=== PATIENT | male | born 1955 | race Caucasian/White ===

== ENCOUNTER 2023-10-29 20:23 | Inpatient (IN) | payer OTHER, MEDICAID ==
[~2023-10-29] VITALS: Ht 177.8 cm; Wt 89.8 kg
[2023-10-29 20:26] VITALS: BP_SYST 144; PULSE 111; RESP 22; TEMP 97.4; O2SAT 98
[2023-10-29] MEDS: NACL 0.9% 1,000 ML IV ONE (21:42)
[2023-10-29] MEDS: ONDANSETRON HCL 4 MG/2 ML VIAL IVP ONE (21:45)
[2023-10-29 21:50] LABS: HEMATOCRIT 27.8 % (36-54); HEMOGLOBIN 7.1 g/dL (14.0-18.0); MEAN CORPUSCULAR HEMOGLOBIN 18 pg (27-31); MEAN CORPUSCULAR HGB CONC 26 % (32-36); MEAN CORPUSCULAR VOLUME 70 fL (79.0-98.0); RED BLOOD CELL COUNT(AUTO) 3.98 MIL/uL (4.2-6.2); RED CELL DISTRIBUTION WIDTH 19.9 % (9.0-15.0)
[2023-10-29 21:50] LABS: BILIRUBIN,URINE 2+ (NEGATIVE); CLARITY/URINE CLOUDY (CLEAR); GLUCOSE,URINE TRACE (NEGATIVE); KETONES,URINE 1+ (NEGATIVE); LEUKOCYTE ESTERASE ,URINE 2+ (NEGATIVE); NITRITE, URINE POSITIVE (NEGATIVE); PROTEIN URINE 1+ (NEGATIVE)
[2023-10-29 22:26] LABS: PLATELET COUNT (AUTO) 837 K/uL (130-430); WHITE BLOOD COUNT (AUTO) 72.7 K/uL (4.8-10.8)
[2023-10-29 22:43] LABS: BLOOD, URINE TRACE (NEGATIVE)
[2023-10-29 22:46] LABS: BACTERIA,URINE MODERATE /HPF (None Seen); MUCUS,URINE None Seen /LPF (None Seen); RBC,URINE 0-3 /HPF (0-3); URINE AMORPHOUS URATE 1+ /HPF (None Seen); WBC,URINE 20-50 /HPF (0-3)
[2023-10-29 22:48] LABS: COLOR,URINE AMBER (YELLOW)
[2023-10-29 23:01] LABS: ANISOCYTOSIS 1+; BAND % (MANUAL) 12 % (0-6); BASOPHILS % (MANUAL) 0 % (0-2); EOSINOPHILS % (MANUAL) 0 % (0-7); HYPOCHROMASIA 2+; LYMPHOCYTES % (MANUAL) 2 % (20-46); MONOCYTES % (MANUAL) 2 % (0-11); OVALOCYTES MODERATE; PLATELET ESTIMATE INCREASED (ADEQUATE)
[2023-10-29 23:10] LABS: CREATININE 1.22 mg/dL (0.55-1.30); GFR AFRICAN AMERICAN 76 mL/min (>90); LIPASE 7 U/L (16-77)
[2023-10-29 23:31] LABS: ALANINE AMINOTRANSFERASE 8 U/L (12-78); ALBUMIN 2.1 g/dL (3.4-4.8); ANION GAP 24 (5-15); ASPARTATE AMINOTRANSFERASE 13 U/L (10-37); BILIRUBIN,DIRECT 0.3 mg/dL (0.0-0.3); CALCIUM 8.7 mg/dL (8.4-11.0); CARBON DIOXIDE 13 mmol/L (23-29); CHLORIDE 90 mmol/L (98-107); CREATINE KINASE, TOTAL 93 U/L (39-308); POTASSIUM 4.9 mmol/L (3.5-5.1); SODIUM SERUM 127 mmol/L (136-145); TOTAL BILIRUBIN 0.6 mg/dL (0.0-1.0); TOTAL PROTEIN, SERUM 7.4 g/dL (6.4-8.3); UREA NITROGEN, BLOOD 56 mg/dL (8-21)
[2023-10-29 23:32] LABS: GFR NON AFRICAN-AMERICAN 63 mL/min (>90)
[2023-10-29 23:34] LABS: GLUCOSE 407 mg/dL (74-106)
[2023-10-29] MEDS ORDERED: VANCOMYCIN HCL 1 GM/NS PREMIX 250 ML IV ONE (23:45)
[2023-10-29] MEDS: PIPERACILLIN/TAZOBACTAM 3.375 GM/VIAL (ZOSYN) IV ONE (23:58)
[2023-10-30] VITALS (21 sets, daily range): BP systolic 0–160; PULSE 73–120; RESP 9–26; TEMP 96.7–98.1; O2SAT 96–100
[2023-10-30] LABS: ACETONE, SERUM NEGATIVE (NEGATIVE)
[2023-10-30] MEDS: PIPERACILLIN/TAZO 3.375 GM in NS 50 ML IV ONE (00:06)
[2023-10-30] MEDS ORDERED: VANCOMYCIN HCL 1000 MG/VIAL IV ONE (00:17)
[2023-10-30] MEDS ORDERED: LEVO112T5 PO (00:24)
[2023-10-30] MEDS ORDERED: TAMS0.4C96 PO (00:24)
[2023-10-30] MEDS ORDERED: HYT1 PO (00:24)
[2023-10-30] MEDS: VANCOMYCIN HCL 1 GM/NS PREMIX 250 ML IV ONE (00:24)
[2023-10-30] MEDS ORDERED: NITR100C PO (00:24)
[2023-10-30] MEDS ORDERED: SIMV-345 PO (00:24)
[2023-10-30] MEDS ORDERED: INSU100V7 SUBCUT (00:24)
[2023-10-30] MEDS ORDERED: NPH,100I SQ (00:24)
[2023-10-30] MEDS ORDERED: PHEN200C3 PO (00:24)
[2023-10-30] MEDS: NACL 0.9% 1,000 ML IV SCH (00:37)
[2023-10-30] MEDS: MORPHINE 2 MG/ML INJ. SYRINGE IVP PRN (02:27)
[2023-10-30] MEDS: INSULIN REGULAR, HUMAN 100 UNITS/ML, 3 ML VIAL (humuLIN R) SUBCUT PRN (02:39)
[2023-10-30] MEDS ORDERED: PIPERACILLIN/TAZOBACTAM 3.375 GM/VIAL (ZOSYN) IV ONE (04:00)
[2023-10-30] MEDS: PIPERACILLIN/TAZO 3.375/DEX-IS 50 ML IV SCH ×2 (06:26→12:14)
[2023-10-30 08:52] LABS: BASOPHILS # (AUTO) 0.1 K/uL (0.0-0.2); BASOPHILS % (AUTO) 0.1 % (0.0-2.0); HEMATOCRIT 27.4 % (36-54); HEMOGLOBIN 7.8 g/dL (14.0-18.0); LYMPHOCYTES # (AUTO) 0.8 K/uL (1.0-5.5); LYMPHOCYTES % (AUTO) 1.2 % (20.5-51.5); MEAN CORPUSCULAR HEMOGLOBIN 20 pg (27-31); MEAN CORPUSCULAR HGB CONC 29 % (32-36); MEAN CORPUSCULAR VOLUME 68 fL (79.0-98.0); MONOCYTES % (AUTO) 3.3 % (1.7-9.3); NEUTROPHILS # (AUTO) 58.2 K/uL (1.8-7.7); PLATELET COUNT (AUTO) 692 K/uL (130-430); RED CELL DISTRIBUTION WIDTH 23.8 % (9.0-15.0)
[2023-10-30 09:04] LABS: NEUTROPHILS % (AUTO) 95.4 % (40.0-70.0)
[2023-10-30 09:05] LABS: CALCIUM 8.2 mg/dL (8.4-11.0); CREATININE 1.12 mg/dL (0.55-1.30); POTASSIUM 4.8 mmol/L (3.5-5.1)
[2023-10-30 09:06] LABS: ALBUMIN 1.9 g/dL (3.4-4.8); PHENYTOIN (DILANTIN) 1.9 ug/mL (10.0-20.0); TOTAL PROTEIN, SERUM 6.8 g/dL (6.4-8.3)
[2023-10-30 09:49] LABS: TOTAL BILIRUBIN 1.1 mg/dL (0.0-1.0)
[2023-10-30] MEDS: metroNIDAZOLE 500 mg/NS 100 ML IV SCH (10:43)
[2023-10-30] MEDS ORDERED: DEXTROSE 50%-WATER 50 ML DISP.SYRIN IVP PRN (10:45)
[2023-10-30] MEDS: FLUCONAZOLE IN NACL,ISO-OSM 200 ML IV SCH (10:50)
[2023-10-30] MEDS: LR 1,000 ML IV SCH (10:51)
[2023-10-30] MEDS: NS 500 ML IV ONE (10:51)
[2023-10-30] MEDS ORDERED: VANCOMYCIN HCL 750 MG in NS 250 ML IV SCH (12:00)
[2023-10-30] MEDS: PANTOPRAZOLE SODIUM 40 MG/VIAL (PROTONIX) IVP ONE (13:02)
[2023-10-30] MEDS: MINERAL OIL 133 ML ENEMA RC ONE (22:16)
[2023-10-31] VITALS (30 sets, daily range): BP systolic 78–195; PULSE 94–116; RESP 12–25; TEMP 97.1–97.8; O2SAT 94–99
[2023-10-31 00:20] LABS: INR 1.3 (0.80-1.20); PROTHROMBIN TIME 13.8 SECS (9.5-12.5)
[2023-10-31 00:29] LABS: CALCIUM 7.8 mg/dL (8.4-11.0); CREATININE 1.04 mg/dL (0.55-1.30); FREE T4 (FREE THYROXINE) 1.3 ng/dl (0.8-1.5); POTASSIUM 4.3 mmol/L (3.5-5.1); THYROID STIMULATING HORMONE 0.86 uIu/mL (0.36-3.74)
[2023-10-31 01:37] LABS: BASOPHILS # (AUTO) 0.1 K/uL (0.0-0.2); BASOPHILS % (AUTO) 0.2 % (0.0-2.0); HEMATOCRIT 27.3 % (36-54); LYMPHOCYTES # (AUTO) 0.5 K/uL (1.0-5.5); LYMPHOCYTES % (AUTO) 1.2 % (20.5-51.5); MEAN CORPUSCULAR HEMOGLOBIN 23 pg (27-31); MEAN CORPUSCULAR HGB CONC 33 % (32-36); MEAN CORPUSCULAR VOLUME 71 fL (79.0-98.0); MONOCYTES # (AUTO) 0.8 K/uL (0.0-1.0); MONOCYTES % (AUTO) 2.1 % (1.7-9.3); NEUTROPHILS # (AUTO) 38.5 K/uL (1.8-7.7); NEUTROPHILS % (AUTO) 96.5 % (40.0-70.0); PLATELET COUNT (AUTO) 559 K/uL (130-430); RED BLOOD CELL COUNT(AUTO) 3.84 MIL/uL (4.2-6.2); RED CELL DISTRIBUTION WIDTH 30.5 % (9.0-15.0)
[2023-10-31 01:53] LABS: WHITE BLOOD COUNT (AUTO) 39.9 K/uL (4.8-10.8)
[2023-10-31] MEDS: PHYTONADIONE 10 MG/ML AMP SUBCUT ONE (02:41)
[2023-10-31] MEDS: BALSAM PERU/CASTOR OIL 56.7 GM OINT...G. TP SCH (09:57)
[2023-10-31] MEDS: PANTOPRAZOLE SODIUM 40 MG/VIAL (PROTONIX) IVP SCH (09:58)
[2023-10-31 10:12] LABS: BASOPHILS # (AUTO) 0.1 K/uL (0.0-0.2); BASOPHILS % (AUTO) 0.3 % (0.0-2.0); HEMOGLOBIN 10.2 g/dL (14.0-18.0); LYMPHOCYTES # (AUTO) 0.7 K/uL (1.0-5.5); LYMPHOCYTES % (AUTO) 1.9 % (20.5-51.5); MEAN CORPUSCULAR HEMOGLOBIN 24 pg (27-31); MEAN CORPUSCULAR HGB CONC 33 % (32-36); MEAN CORPUSCULAR VOLUME 73 fL (79.0-98.0); MONOCYTES % (AUTO) 2.8 % (1.7-9.3); NEUTROPHILS # (AUTO) 33.8 K/uL (1.8-7.7); PLATELET COUNT (AUTO) 506 K/uL (130-430); RED BLOOD CELL COUNT(AUTO) 4.25 MIL/uL (4.2-6.2); RED CELL DISTRIBUTION WIDTH 30.9 % (9.0-15.0)
[2023-10-31 10:14] LABS: CALCIUM 8.1 mg/dL (8.4-11.0); CREATININE 0.92 mg/dL (0.55-1.30); TOTAL BILIRUBIN 1.6 mg/dL (0.0-1.0); TOTAL PROTEIN, SERUM 6.8 g/dL (6.4-8.3)
[2023-10-31 10:28] LABS: WHITE BLOOD COUNT (AUTO) 35.7 K/uL (4.8-10.8)
[2023-10-31] MEDS: MORPHINE 2 MG/ML INJ. SYRINGE IVP PRN (11:07)
[2023-10-31] MEDS: fentaNYL CITRATE/PF 100 MCG/2 ML AMP ONE (15:06)
[2023-10-31] MEDS: HYDROmorphone 2 MG/ML VIAL ONE (15:06)
[2023-10-31] MEDS: MIDAZOLAM HCL 2 MG/2 ML VIAL (VERSED) ONE (15:07)
[2023-10-31] MEDS: ALBUMIN HUMAN 5% 0 ML IV ONE (16:22)
[2023-10-31] MEDS: ALBUMIN HUMAN 5% 500 ML IV ONE (16:38)
[2023-10-31] MEDS: ALBUMIN HUMAN 5% 250 ML IV ONE (16:38)
[2023-10-31] MEDS ORDERED: metroNIDAZOLE 500 mg/NS 100 mL IVPB IV ONE (20:11)
[2023-10-31] MEDS ORDERED: PROPOFOL 200MG/ 20ML VIAL (DIPRIVAN) IV ONE (20:11)
[2023-10-31] MEDS ORDERED: LR 1,000 ML IV.SOLN IV ONE (20:11)
[2023-10-31] MEDS ORDERED: fentaNYL CITRATE/PF 100 MCG/2 ML AMP ONE (20:11)
[2023-10-31] MEDS ORDERED: ROCURONIUM BROMIDE 10 MG/ML (ZEMURON) ONE (20:11)
[2023-10-31] MEDS ORDERED: HYDROmorphone 2 MG/ML VIAL ONE (20:11)
[2023-10-31] MEDS ORDERED: NS IRRIG SOLN 1000 ML IR ONE (20:11)
[2023-10-31] MEDS ORDERED: NS 250 ML IV.SOLN IV ONE (20:11)
[2023-10-31] MEDS ORDERED: SEVOFLURANE 15 MIN GAS INH ONE (20:11)
[2023-10-31] MEDS ORDERED: NS 500 ML IV.SOLN IV ONE (20:11)
[2023-10-31] MEDS ORDERED: DEXAMETHASONE SOD PHOSPHATE 4 MG/ML VIAL ONE (20:11)
[2023-10-31] MEDS ORDERED: MIDAZOLAM HCL 5 MG/ML VIAL (VERSED) IV ONE (20:11)
[2023-10-31] MEDS ORDERED: ALBUMIN HUMAN 5% 12.5 GM/250 ML VIAL IV ONE (20:11)
[2023-10-31] MEDS ORDERED: WATER FOR IRRIGATION,STERILE 1,000 ML IRRIG.SOLN IR ONE (20:11)
[2023-10-31] MEDS: PROPOFOL DRIP 100 ML IV ONE (20:23)
[2023-10-31] MEDS: PROPOFOL DRIP 100 ML IV PRN (20:26)
[2023-10-31] MEDS: NOREPINEPHRINE BITARTRATE 16 MG in NS 234 ML IV PRN (20:39)
[2023-10-31 20:47] LABS: BASOPHILS % (AUTO) 0.2 % (0.0-2.0); EOSINOPHILS % (AUTO) 0.1 % (0.0-4.0); HEMATOCRIT 45.3 % (36-54); HEMOGLOBIN 15.1 g/dL (14.0-18.0); LYMPHOCYTES # (AUTO) 0.2 K/uL (1.0-5.5); LYMPHOCYTES % (AUTO) 1.8 % (20.5-51.5); MEAN CORPUSCULAR HEMOGLOBIN 27 pg (27-31); MEAN CORPUSCULAR HGB CONC 33 % (32-36); MONOCYTES # (AUTO) 0.3 K/uL (0.0-1.0); MONOCYTES % (AUTO) 2.3 % (1.7-9.3); NEUTROPHILS # (AUTO) 12.9 K/uL (1.8-7.7); NEUTROPHILS % (AUTO) 95.6 % (40.0-70.0); PLATELET COUNT (AUTO) 313 K/uL (130-430); RED BLOOD CELL COUNT(AUTO) 5.65 MIL/uL (4.2-6.2); RED CELL DISTRIBUTION WIDTH 28.6 % (9.0-15.0)
[2023-10-31 20:49] LABS: CALCIUM 7.1 mg/dL (8.4-11.0); CREATININE 0.82 mg/dL (0.55-1.30); POTASSIUM 4.6 mmol/L (3.5-5.1)
[2023-10-31 20:52] LABS: MEAN CORPUSCULAR VOLUME 80 fL (79.0-98.0)
[2023-10-31] MEDS: BUPIVACAINE LIPOSOME/PF 266 MG/20 ML VIAL INFIL ONE (20:55)
[2023-10-31 21:06] LABS: WHITE BLOOD COUNT (AUTO) 13.5 K/uL (4.8-10.8)
[2023-10-31 23:55] LABS: BLOOD GAS PH 7.221 (7.350-7.450)
[2023-10-31 23:56] LABS: ABG O2 SAT% ESTIMATE 98.9 % (94.0-100.0); BLOOD GAS BASE EXCESS -9.2 mmol/L (-3.0-3.0); BLOOD GAS HCO3 18.4 mmol/L (21.0-27.0); BLOOD GAS PO2 175.5 mmHg (75.0-100.0)
[2023-11-01] VITALS (36 sets, daily range): BP systolic 95–144; PULSE 91–114; RESP 13–33; TEMP 97.7–98.5; O2SAT 98–99
[2023-11-01] MEDS ORDERED: SODIUM BICARBONATE 8.4% JECT 50 MEQ/50 ML SYRINGE IVP ONE (01:15)
[2023-11-01] MEDS: SODIUM BICARBONATE 8.4% JECT 50 MEQ/50 ML SYRINGE IVP ONE (01:34)
[2023-11-01 06:33] LABS: BASOPHILS # (AUTO) 0.1 K/uL (0.0-0.2); BASOPHILS % (AUTO) 0.4 % (0.0-2.0); EOSINOPHILS # (AUTO) 0.1 K/uL (0.0-0.4); EOSINOPHILS % (AUTO) 0.4 % (0.0-4.0); HEMATOCRIT 44.5 % (36-54); HEMOGLOBIN 14.4 g/dL (14.0-18.0); LYMPHOCYTES # (AUTO) 0.5 K/uL (1.0-5.5); LYMPHOCYTES % (AUTO) 1.7 % (20.5-51.5); MEAN CORPUSCULAR HEMOGLOBIN 27 pg (27-31); MEAN CORPUSCULAR HGB CONC 32 % (32-36); MEAN CORPUSCULAR VOLUME 83 fL (79.0-98.0); MONOCYTES # (AUTO) 0.5 K/uL (0.0-1.0); MONOCYTES % (AUTO) 1.6 % (1.7-9.3); NEUTROPHILS # (AUTO) 28.7 K/uL (1.8-7.7); NEUTROPHILS % (AUTO) 95.9 % (40.0-70.0); PLATELET COUNT (AUTO) 415 K/uL (130-430); RED BLOOD CELL COUNT(AUTO) 5.38 MIL/uL (4.2-6.2); RED CELL DISTRIBUTION WIDTH 28.3 % (9.0-15.0)
[2023-11-01 06:56] LABS: ALBUMIN 1.6 g/dL (3.4-4.8); CALCIUM 7.2 mg/dL (8.4-11.0); CREATININE 0.83 mg/dL (0.55-1.30); POTASSIUM 4.6 mmol/L (3.5-5.1); TOTAL BILIRUBIN 2.5 mg/dL (0.0-1.0); TOTAL PROTEIN, SERUM 4.8 g/dL (6.4-8.3)
[2023-11-01 09:59] LABS: BLOOD GAS BASE EXCESS -4.2 mmol/L (-3.0-3.0); BLOOD GAS HCO3 18.2 mmol/L (21.0-27.0); BLOOD GAS PCO2 27.3 mmHg (32.0-45.0); BLOOD GAS PH 7.442 (7.350-7.450); BLOOD GAS PO2 147.6 mmHg (75.0-100.0)
[2023-11-01] MEDS: ROCURONIUM BROMIDE 10 MG/ML (ZEMURON) IV ONE (14:06)
[2023-11-01] MEDS: FUROSEMIDE 40 MG/4 ML VIAL IVP ONE (14:07)
[2023-11-01] MEDS ORDERED: *TPN PER PHARMACY XX PRN (18:15)
[2023-11-02] VITALS (36 sets, daily range): BP systolic 98–160; PULSE 87–108; RESP 8–21; TEMP 97–98.5; O2SAT 92–99
[2023-11-02 06:42] LABS: HEMATOCRIT 38.4 % (36-54); HEMOGLOBIN 12.2 g/dL (14.0-18.0); MEAN CORPUSCULAR HEMOGLOBIN 26 pg (27-31); MEAN CORPUSCULAR HGB CONC 32 % (32-36); MEAN CORPUSCULAR VOLUME 82 fL (79.0-98.0); PLATELET COUNT (AUTO) 263 K/uL (130-430); RED BLOOD CELL COUNT(AUTO) 4.68 MIL/uL (4.2-6.2)
[2023-11-02 06:49] LABS: ALBUMIN 1.1 g/dL (3.4-4.8); CREATININE 0.97 mg/dL (0.55-1.30); PHOSPHORUS 2.9 mg/dL (2.7-4.5); POTASSIUM 4.2 mmol/L (3.5-5.1); TOTAL BILIRUBIN 1.8 mg/dL (0.0-1.0); TOTAL PROTEIN, SERUM 4.3 g/dL (6.4-8.3)
[2023-11-02 07:01] LABS: CALCIUM 6.8 mg/dL (8.4-11.0)
[2023-11-02 07:50] LABS: WHITE BLOOD COUNT (AUTO) 30.9 K/uL (4.8-10.8)
[2023-11-02] MEDS: FUROSEMIDE 40 MG/4 ML VIAL IVP SCH (08:33)
[2023-11-02] MEDS ORDERED: LR 1,000 ML IV SCH (10:30)
[2023-11-02] MEDS: ALBUMIN HUMAN 25% 50 ML IV ONE (10:35)
[2023-11-02 10:39] LABS: BAND % (MANUAL) 27 % (0-6)
[2023-11-02 10:40] LABS: ANISOCYTOSIS 2+; ATYPICAL LYMPHOCYTES % 1 % (0-0); BASOPHILS % (MANUAL) 0 % (0-2); EOSINOPHILS % (MANUAL) 0 % (0-7); HYPOCHROMASIA 1+; LYMPHOCYTES % (MANUAL) 2 % (20-46); MONOCYTES % (MANUAL) 2 % (0-11); PLATELET ESTIMATE ADEQUATE (ADEQUATE)
[2023-11-02] MEDS: LR 1,000 ML IV SCH (21:28)
[2023-11-02] MEDS: MVI IV SCH (21:30)
[2023-11-02] MEDS: CALCIUM GLUCONATE IV SCH (21:30)
[2023-11-02] MEDS: SODIUM ACETATE IV SCH (21:30)
[2023-11-02] MEDS: [UNRECOGNIZED DRUG - OTHER] IV SCH (21:30)
[2023-11-02] MEDS: TPN CENTRAL IV SCH (21:30)
[2023-11-03] VITALS (35 sets, daily range): BP systolic 93–157; PULSE 76–120; RESP 9–17; TEMP 97.2–98.2; O2SAT 96–100
[2023-11-03 06:16] LABS: ALBUMIN 1.1 g/dL (3.4-4.8); CREATININE 0.88 mg/dL (0.55-1.30); PHOSPHORUS 2.8 mg/dL (2.7-4.5); POTASSIUM 3.1 mmol/L (3.5-5.1); TOTAL BILIRUBIN 1.3 mg/dL (0.0-1.0)
[2023-11-03 06:29] LABS: INR 1.4 (0.80-1.20); PROTHROMBIN TIME 14.7 SECS (9.5-12.5)
[2023-11-03 06:54] LABS: EOSINOPHILS % (AUTO) 0.1 % (0.0-4.0); HEMATOCRIT 34.3 % (36-54); HEMOGLOBIN 10.7 g/dL (14.0-18.0); LYMPHOCYTES # (AUTO) 0.7 K/uL (1.0-5.5); LYMPHOCYTES % (AUTO) 2.5 % (20.5-51.5); MEAN CORPUSCULAR HEMOGLOBIN 26 pg (27-31); MEAN CORPUSCULAR HGB CONC 31 % (32-36); MEAN CORPUSCULAR VOLUME 83 fL (79.0-98.0); MONOCYTES # (AUTO) 0.9 K/uL (0.0-1.0); MONOCYTES % (AUTO) 3.1 % (1.7-9.3); PLATELET COUNT (AUTO) 184 K/uL (130-430); RED BLOOD CELL COUNT(AUTO) 4.14 MIL/uL (4.2-6.2); RED CELL DISTRIBUTION WIDTH 29.3 % (9.0-15.0); WHITE BLOOD COUNT (AUTO) 27.6 K/uL (4.8-10.8)
[2023-11-03 07:23] LABS: NEUTROPHILS % (AUTO) 94.3 % (40.0-70.0)
[2023-11-03 08:24] LABS: CALCIUM 6.8 mg/dL (8.4-11.0)
[2023-11-03] MEDS: CALCIUM CHLORIDE 1 GM in NS 100 ML IV ONE (11:22)
[2023-11-03] MEDS: INSULIN GLARGINE 100 UNITS/ML, 10 ML VIAL SUBCUT ONE ×2 (11:31→23:54)
[2023-11-03] MEDS: KCL 40 mEq in 100 mL (PREMIX) 100 ML IV ONE (13:08)
[2023-11-03] MEDS: PHYTONADIONE 10 MG/ML AMP IM ONE (16:32)
[2023-11-03] MEDS: MINERAL OIL 133 ML ENEMA RC ONE (17:03)
[2023-11-03] MEDS: LR 1,000 ML IV SCH (21:00)
[2023-11-03] MEDS: SODIUM ACETATE IV SCH (21:55)
[2023-11-03] MEDS: POTASSIUM ACETATE IV SCH (21:55)
[2023-11-03] MEDS: K PHOS IV SCH (21:55)
[2023-11-03] MEDS: [UNRECOGNIZED DRUG - OTHER] IV SCH (21:55)
[2023-11-03] MEDS: TPN CENTRAL IV SCH (21:55)
[2023-11-03] MEDS: INSULIN GLARGINE 100 UNITS/ML, 10 ML VIAL SUBCUT SCH (22:00)
[2023-11-04] VITALS (28 sets, daily range): BP systolic 124–183; PULSE 80–122; RESP 10–21; TEMP 96.9–97.8; O2SAT 94–100
[2023-11-04] MEDS: INSULIN REGULAR, HUMAN 100 UNITS/ML, 3 ML VIAL SUBCUT ONE (04:55)
[2023-11-04 06:22] LABS: BASOPHILS # (AUTO) 0.1 K/uL (0.0-0.2); BASOPHILS % (AUTO) 0.4 % (0.0-2.0); EOSINOPHILS # (AUTO) 0.1 K/uL (0.0-0.4); EOSINOPHILS % (AUTO) 0.5 % (0.0-4.0); HEMATOCRIT 38.2 % (36-54); LYMPHOCYTES # (AUTO) 0.9 K/uL (1.0-5.5); MEAN CORPUSCULAR HEMOGLOBIN 26 pg (27-31); MEAN CORPUSCULAR HGB CONC 31 % (32-36); MEAN CORPUSCULAR VOLUME 83 fL (79.0-98.0); MONOCYTES % (AUTO) 4.4 % (1.7-9.3); NEUTROPHILS # (AUTO) 21.4 K/uL (1.8-7.7); PLATELET COUNT (AUTO) 142 K/uL (130-430); RED BLOOD CELL COUNT(AUTO) 4.59 MIL/uL (4.2-6.2); RED CELL DISTRIBUTION WIDTH 29.2 % (9.0-15.0); WHITE BLOOD COUNT (AUTO) 23.6 K/uL (4.8-10.8)
[2023-11-04 07:17] LABS: CALCIUM 7.2 mg/dL (8.4-11.0); CREATININE 0.78 mg/dL (0.55-1.30); PHOSPHORUS 2.4 mg/dL (2.7-4.5); POTASSIUM 3.2 mmol/L (3.5-5.1); TOTAL BILIRUBIN 1.5 mg/dL (0.0-1.0); TOTAL PROTEIN, SERUM 4.2 g/dL (6.4-8.3)
[2023-11-04 08:04] LABS: NEUTROPHILS % (AUTO) 90.7 % (40.0-70.0)
[2023-11-04] MEDS ORDERED: POTASSIUM CHLORIDE 40 MEQ in D5W 250 ML IV ONE (08:15)
[2023-11-04] MEDS: LR 1,000 ML IV SCH (08:15)
[2023-11-04] MEDS ORDERED: KCL 40 mEq in 100 mL (PREMIX) 100 ML IV ONE (09:15)
[2023-11-04] MEDS: FUROSEMIDE 20 MG/2 ML VIAL IVP ONE (10:01)
[2023-11-04] MEDS: K PHOS 30 MM in NS 250 ML IV ONE (10:30)
[2023-11-04] MEDS: MINERAL OIL 133 ML ENEMA RC ONE (15:39)
[2023-11-04] MEDS: MAGNESIUM SULFATE 50 ML IV ONE (15:42)
[2023-11-04] MEDS: hydrALAZINE HCL 20 MG/ML VIAL IVP PRN (15:47)
[2023-11-04] MEDS: HEPARIN SODIUM,PORCINE 5,000 UNITS/ML VIAL SUBCUT SCH (20:34)
[2023-11-04] MEDS: PHENYTOIN SODIUM 100 MG/2 ML VIAL (DILANTIN) IVP SCH (20:36)
[2023-11-04] MEDS: POTASSIUM ACETATE IV SCH (20:39)
[2023-11-04] MEDS: K PHOS IV SCH (20:39)
[2023-11-04] MEDS: TPN CENTRAL IV SCH (20:39)
[2023-11-04] MEDS: [UNRECOGNIZED DRUG - OTHER] IV SCH (20:39)
[2023-11-04] MEDS: SODIUM ACETATE IV SCH (20:39)
[2023-11-04] MEDS: INSULIN REGULAR, HUMAN 100 UNITS/ML, 3 ML VIAL SUBCUT SCH (23:48)
[2023-11-05] VITALS (23 sets, daily range): BP systolic 111–158; PULSE 82–123; RESP 11–25; TEMP 97.5–98.3; O2SAT 95–99
[2023-11-05] MEDS: LEVOTHYROXINE SODIUM 0.112 MG TABLET PO SCH (06:12)
[2023-11-05 06:39] LABS: BASOPHILS # (AUTO) 0.1 K/uL (0.0-0.2); BASOPHILS % (AUTO) 0.4 % (0.0-2.0); EOSINOPHILS # (AUTO) 0.1 K/uL (0.0-0.4); EOSINOPHILS % (AUTO) 0.3 % (0.0-4.0); HEMATOCRIT 38.7 % (36-54); HEMOGLOBIN 12.4 g/dL (14.0-18.0); LYMPHOCYTES # (AUTO) 0.9 K/uL (1.0-5.5); LYMPHOCYTES % (AUTO) 4.4 % (20.5-51.5); MEAN CORPUSCULAR HEMOGLOBIN 26 pg (27-31); MEAN CORPUSCULAR HGB CONC 32 % (32-36); MEAN CORPUSCULAR VOLUME 81 fL (79.0-98.0); MONOCYTES # (AUTO) 0.9 K/uL (0.0-1.0); MONOCYTES % (AUTO) 4.1 % (1.7-9.3); NEUTROPHILS # (AUTO) 19.5 K/uL (1.8-7.7); NEUTROPHILS % (AUTO) 90.8 % (40.0-70.0); PLATELET COUNT (AUTO) 152 K/uL (130-430); RED BLOOD CELL COUNT(AUTO) 4.78 MIL/uL (4.2-6.2); RED CELL DISTRIBUTION WIDTH 30.2 % (9.0-15.0); WHITE BLOOD COUNT (AUTO) 21.5 K/uL (4.8-10.8)
[2023-11-05 07:45] LABS: HEMOGLOBIN A1C 6.1 % (<5.7)
[2023-11-05 08:19] LABS: ALBUMIN 1.1 g/dL (3.4-4.8); CALCIUM 7.3 mg/dL (8.4-11.0); CREATININE 0.67 mg/dL (0.55-1.30); PHOSPHORUS 3.4 mg/dL (2.7-4.5); TOTAL BILIRUBIN 2.2 mg/dL (0.0-1.0); TOTAL PROTEIN, SERUM 4.9 g/dL (6.4-8.3)
[2023-11-05] MEDS: METOPROLOL TARTRATE 25 MG TABLET PO SCH (08:28)
[2023-11-05 08:39] LABS: POTASSIUM 2.9 mmol/L (3.5-5.1)
[2023-11-05] MEDS ORDERED: KCL 40 mEq in 100 mL (PREMIX) 100 ML IV ONE (08:45)
[2023-11-05] MEDS: TAMSULOSIN HCL 0.4 MG CAP PO SCH (09:00)
[2023-11-05] MEDS ORDERED: LEVOTHYROXINE SODIUM 100 MCG/5 ML VIAL IVP SCH (09:00)
[2023-11-05] MEDS: POTASSIUM CHLORIDE 20 MEQ TABLET.ER PO ONE (09:15)
[2023-11-05] MEDS: INSULIN GLARGINE 100 UNITS/ML, 10 ML VIAL SUBCUT SCH ×2 (12:09→21:28)
[2023-11-05] MEDS: FUROSEMIDE 20 MG/2 ML VIAL IVP ONE (12:11)
[2023-11-05] MEDS: MINERAL OIL 133 ML ENEMA RC ONE (13:45)
[2023-11-05] MEDS ORDERED: DEXTROSE 50% JECT 50 ML DISP.SYRIN IVP PRN (14:15)
[2023-11-05] MEDS: KCL 20 mEq in 100 mL (PREMIX) 100 ML IV ONE (15:41)
[2023-11-05] MEDS: INSULIN Lispro 100 UNITS/ML, 3 ML VIAL (humaLOG) SUBCUT SCH (17:34)
[2023-11-05] MEDS: MORPHINE 2 MG/ML INJ. SYRINGE IVP PRN (17:38)
[2023-11-05] MEDS ORDERED: [UNRECOGNIZED DRUG - OTHER] IV SCH (21:00)
[2023-11-05] MEDS ORDERED: SODIUM ACETATE IV SCH (21:00)
[2023-11-05] MEDS ORDERED: TPN CENTRAL IV SCH (21:00)
[2023-11-05] MEDS ORDERED: K PHOS IV SCH (21:00)
[2023-11-05] MEDS ORDERED: POTASSIUM ACETATE IV SCH (21:00)
[2023-11-05] MEDS: INSULIN LISPRO SLIDING SCALE 100 UNITS/ML, 3 ML VIAL (humaLOG) SUBCUT PRN (21:27)
[2023-11-06] VITALS (22 sets, daily range): BP systolic 96–144; PULSE 70–94; RESP 11–19; TEMP 82–98; O2SAT 97–100
[2023-11-06 06:30] LABS: BASOPHILS # (AUTO) 0.1 K/uL (0.0-0.2); BASOPHILS % (AUTO) 0.6 % (0.0-2.0); EOSINOPHILS # (AUTO) 0.3 K/uL (0.0-0.4); EOSINOPHILS % (AUTO) 1.5 % (0.0-4.0); HEMATOCRIT 36.4 % (36-54); HEMOGLOBIN 12.2 g/dL (14.0-18.0); LYMPHOCYTES # (AUTO) 1.3 K/uL (1.0-5.5); LYMPHOCYTES % (AUTO) 6.7 % (20.5-51.5); MEAN CORPUSCULAR HEMOGLOBIN 27 pg (27-31); MEAN CORPUSCULAR HGB CONC 33 % (32-36); MEAN CORPUSCULAR VOLUME 80 fL (79.0-98.0); MONOCYTES # (AUTO) 0.8 K/uL (0.0-1.0); MONOCYTES % (AUTO) 4.1 % (1.7-9.3); NEUTROPHILS # (AUTO) 16.9 K/uL (1.8-7.7); NEUTROPHILS % (AUTO) 87.1 % (40.0-70.0); PLATELET COUNT (AUTO) 181 K/uL (130-430); RED BLOOD CELL COUNT(AUTO) 4.56 MIL/uL (4.2-6.2); RED CELL DISTRIBUTION WIDTH 30.8 % (9.0-15.0); WHITE BLOOD COUNT (AUTO) 19.4 K/uL (4.8-10.8)
[2023-11-06 07:16] LABS: CALCIUM 7.2 mg/dL (8.4-11.0); CREATININE 0.49 mg/dL (0.55-1.30); POTASSIUM 3.5 mmol/L (3.5-5.1)
[2023-11-06] MEDS: MINERAL OIL 133 ML ENEMA RC ONE (07:30)
[2023-11-06] MEDS: INSULIN GLARGINE 100 UNITS/ML, 10 ML VIAL SUBCUT SCH (09:53)
[2023-11-06] MEDS: INSULIN Lispro 100 UNITS/ML, 3 ML VIAL (humaLOG) SUBCUT SCH (11:30)
[2023-11-06] MEDS: metroNIDAZOLE 250 mg/NS 50 ML IV SCH (14:22)
[2023-11-06] MEDS: PHENYTOIN 100 MG CAPSULE PO SCH (22:18)
[2023-11-06] MEDS: CEFEPIME 2 GM in D5W 100 ML IV SCH (22:18)
[2023-11-07] VITALS: BP_SYST 106; PULSE 84; RESP 18; TEMP 98.4; O2SAT 97
[2023-11-07 05:29] LABS: BASOPHILS # (AUTO) 0.1 K/uL (0.0-0.2); BASOPHILS % (AUTO) 0.5 % (0.0-2.0); EOSINOPHILS # (AUTO) 0.3 K/uL (0.0-0.4); EOSINOPHILS % (AUTO) 1.4 % (0.0-4.0); HEMATOCRIT 35.6 % (36-54); HEMOGLOBIN 11.4 g/dL (14.0-18.0); LYMPHOCYTES # (AUTO) 1.5 K/uL (1.0-5.5); LYMPHOCYTES % (AUTO) 6.8 % (20.5-51.5); MEAN CORPUSCULAR HEMOGLOBIN 26 pg (27-31); MEAN CORPUSCULAR HGB CONC 32 % (32-36); MEAN CORPUSCULAR VOLUME 80 fL (79.0-98.0); MONOCYTES # (AUTO) 0.8 K/uL (0.0-1.0); MONOCYTES % (AUTO) 3.6 % (1.7-9.3); NEUTROPHILS # (AUTO) 19.2 K/uL (1.8-7.7); NEUTROPHILS % (AUTO) 87.7 % (40.0-70.0); PLATELET COUNT (AUTO) 207 K/uL (130-430); RED BLOOD CELL COUNT(AUTO) 4.45 MIL/uL (4.2-6.2); RED CELL DISTRIBUTION WIDTH 30.3 % (9.0-15.0); WHITE BLOOD COUNT (AUTO) 21.9 K/uL (4.8-10.8)
[2023-11-07 06:12] LABS: CALCIUM 7.2 mg/dL (8.4-11.0); CREATININE 0.36 mg/dL (0.55-1.30); POTASSIUM 3.4 mmol/L (3.5-5.1)
[2023-11-07 08:00] VITALS: BP_SYST 103; PULSE 87; RESP 16; TEMP 97.3; O2SAT 97
[2023-11-07] MEDS: KCL 40 mEq in 100 mL (PREMIX) 100 ML IV ONE (08:58)
[2023-11-07 09:00] VITALS: O2SAT 97
[2023-11-07] MEDS ORDERED: MIDODRINE HCL 5 MG TABLET (PROAMATINE) PO SCH (09:15)
[2023-11-07] MEDS: D5W 1,000 ML IV SCH (09:21)
[2023-11-07] MEDS: MIDODRINE HCL 5 MG TABLET (PROAMATINE) PO ONE (09:50)
[2023-11-07] MEDS: FUROSEMIDE 20 MG/2 ML VIAL IVP ONE (09:52)
[2023-11-07] MEDS: INSULIN GLARGINE 100 UNITS/ML, 10 ML VIAL SUBCUT SCH (09:56)
[2023-11-07 12:57] VITALS: BP_SYST 103; PULSE 93; RESP 18; TEMP 96.2; O2SAT 99
[2023-11-07] MEDS: MIDODRINE HCL 5 MG TABLET (PROAMATINE) PO SCH (15:37)
[2023-11-07 16:32] VITALS: BP_SYST 118; PULSE 104; RESP 16; TEMP 97.6; O2SAT 98
[2023-11-07] MEDS: FUROSEMIDE 40 MG/4 ML VIAL IVP ONE (17:08)
[2023-11-07 20:00] VITALS: BP_SYST 124; PULSE 114; RESP 18; TEMP 98; O2SAT 99
[2023-11-08] VITALS: BP_SYST 131; PULSE 114; RESP 20; TEMP 97.4; O2SAT 98
[2023-11-08] MEDS: ONDANSETRON HCL 4 MG/2 ML VIAL IVP PRN (01:47)
[2023-11-08 05:40] LABS: BASOPHILS # (AUTO) 0.2 K/uL (0.0-0.2); BASOPHILS % (AUTO) 0.9 % (0.0-2.0); EOSINOPHILS # (AUTO) 0.4 K/uL (0.0-0.4); EOSINOPHILS % (AUTO) 1.8 % (0.0-4.0); HEMATOCRIT 36.6 % (36-54); LYMPHOCYTES # (AUTO) 1.5 K/uL (1.0-5.5); LYMPHOCYTES % (AUTO) 5.9 % (20.5-51.5); MEAN CORPUSCULAR HEMOGLOBIN 26 pg (27-31); MEAN CORPUSCULAR HGB CONC 33 % (32-36); MEAN CORPUSCULAR VOLUME 80 fL (79.0-98.0); MONOCYTES # (AUTO) 0.8 K/uL (0.0-1.0); MONOCYTES % (AUTO) 3.1 % (1.7-9.3); NEUTROPHILS % (AUTO) 88.3 % (40.0-70.0); PLATELET COUNT (AUTO) 297 K/uL (130-430); RED BLOOD CELL COUNT(AUTO) 4.59 MIL/uL (4.2-6.2); RED CELL DISTRIBUTION WIDTH 31.4 % (9.0-15.0)
[2023-11-08 07:02] LABS: ALBUMIN 1.2 g/dL (3.4-4.8); CALCIUM 7.3 mg/dL (8.4-11.0); CREATININE 0.61 mg/dL (0.55-1.30); POTASSIUM 4.1 mmol/L (3.5-5.1); TOTAL BILIRUBIN 2.1 mg/dL (0.0-1.0); TOTAL PROTEIN, SERUM 5.5 g/dL (6.4-8.3)
[2023-11-08 08:00] VITALS: BP_SYST 107; PULSE 105; RESP 18; TEMP 97.2; O2SAT 95
[2023-11-08] MEDS: INSULIN GLARGINE 100 UNITS/ML, 10 ML VIAL SUBCUT SCH (08:29)
[2023-11-08 09:00] VITALS: O2SAT 95
[2023-11-08 13:07] LABS: ANISOCYTOSIS 1+; HYPOCHROMASIA 1+; ROULEAU 1+
[2023-11-08 13:31] VITALS: BP_SYST 122; PULSE 106; RESP 19; TEMP 96.4; O2SAT 91
[2023-11-08 17:32] VITALS: BP_SYST 131; PULSE 98; RESP 18; TEMP 96.5; O2SAT 95
[2023-11-08 20:00] VITALS: BP_SYST 116; PULSE 95; RESP 18; TEMP 97; O2SAT 97
[2023-11-08 20:40] LABS: BLOOD GAS PH 7.426 (7.350-7.450)
[2023-11-08 20:41] LABS: ABG O2 SAT% ESTIMATE 92.4 % (94.0-98.0); ALLEN'S TEST POSITIVE (P); BLOOD GAS HCO3 24.1 mmol/L (21.0-28.0); BLOOD GAS PCO2 37.5 mmHg (35.0-48.0); BLOOD GAS PO2 61.8 mmHg (83.0-108.0)
[2023-11-09] VITALS (12 sets, daily range): BP systolic 80–151; PULSE 94–128; RESP 16–26; TEMP 96.4–97.6; O2SAT 95–100
[2023-11-09] MEDS ORDERED: ACETAMINOPHEN 650 MG/20.3 ML UDC GT PRN (06:30)
[2023-11-09 08:33] LABS: CALCIUM 7.5 mg/dL (8.4-11.0); CREATININE 0.59 mg/dL (0.55-1.30); POTASSIUM 4.2 mmol/L (3.5-5.1)
[2023-11-09 10:32] LABS: HEMATOCRIT 34.7 % (36-54); HEMOGLOBIN 11.2 g/dL (14.0-18.0); MEAN CORPUSCULAR HEMOGLOBIN 26 pg (27-31); MEAN CORPUSCULAR HGB CONC 32 % (32-36); MEAN CORPUSCULAR VOLUME 81 fL (79.0-98.0); PLATELET COUNT (AUTO) 261 K/uL (130-430); RED BLOOD CELL COUNT(AUTO) 4.29 MIL/uL (4.2-6.2); RED CELL DISTRIBUTION WIDTH 31.8 % (9.0-15.0)
[2023-11-09 10:56] LABS: WHITE BLOOD COUNT (AUTO) 48.3 K/uL (4.8-10.8)
[2023-11-09] MEDS ORDERED: MORPHINE 4 MG INJ. 4 MG/ML VIAL IVP PRN (11:15)
[2023-11-09] MEDS: MORPHINE 4 MG INJ. 4 MG/ML VIAL IVP ONE (11:20)
[2023-11-09 15:32] LABS: ANISOCYTOSIS 1+; ATYPICAL LYMPHOCYTES % 0 % (0-0); BAND % (MANUAL) 6 % (0-6); BASOPHILS % (MANUAL) 0 % (0-2); EOSINOPHILS % (MANUAL) 0 % (0-7); HYPOCHROMASIA 1+; LYMPHOCYTES % (MANUAL) 3 % (20-46); MONOCYTES % (MANUAL) 1 % (0-11); PLATELET ESTIMATE ADEQUATE (ADEQUATE)
[2023-11-09 15:33] LABS: ROULEAU 1+
[2023-11-09] MEDS: PIPERACILLIN/TAZO 3.375 GM in D5W 50 ML IV ONE (17:26)
[2023-11-09] MEDS: VANCOMYCIN HCL 1,000 MG in NS 250 ML IV SCH (18:15)
[2023-11-09] MEDS ORDERED: ALBUMIN HUMAN 25% 100 ML IV ONE (22:35)
[2023-11-09] MEDS: methylPREDNISolone SOD SUCC/PF 62.5 MG/ML VIAL ONE (22:52)
[2023-11-09] MEDS: NOREPINEPHRINE 4 MG/4 ML VIAL IV ONE ×2 (22:53→22:54)
[2023-11-09] MEDS: ALBUMIN HUMAN 25% 100 ML IV ONE (22:57)
[2023-11-09] MEDS: methylPREDNISolone SOD SUCC/PF 62.5 MG/ML VIAL IVP ONE (22:57)
[2023-11-09] MEDS: NOREPINEPHRINE BITARTRATE 16 MG in NS 234 ML IV PRN (22:57)
[2023-11-09] MEDS: NS 1000 ML IV.SOLN IV ONE ×2 (23:00→23:01)
[2023-11-10] VITALS (36 sets, daily range): BP systolic 64–140; PULSE 94–154; RESP 22–37; TEMP 97.4–99.6; O2SAT 88–99
[2023-11-10] MEDS: NACL 0.9% 1,000 ML IV SCH (00:31)
[2023-11-10] MEDS: PIPERACILLIN/TAZO 3.375 GM in D5W 50 ML IV SCH (01:18)
[2023-11-10 02:06] LABS: BLOOD GAS PCO2 76.3 mmHg (35.0-48.0); BLOOD GAS PH 7.078 (7.350-7.450); BLOOD GAS PO2 51.7 mmHg (83.0-108.0)
[2023-11-10 02:07] LABS: ABG O2 SAT% ESTIMATE 70.9 % (94.0-98.0); BLOOD GAS BASE EXCESS -8.8 mmol/L (-2.0-3.0)
[2023-11-10 07:11] LABS: BASOPHILS # (AUTO) 0.1 K/uL (0.0-0.2); BASOPHILS % (AUTO) 0.4 % (0.0-2.0); HEMATOCRIT 36.7 % (36-54); HEMOGLOBIN 11.3 g/dL (14.0-18.0); LYMPHOCYTES # (AUTO) 0.3 K/uL (1.0-5.5); LYMPHOCYTES % (AUTO) 1.7 % (20.5-51.5); MEAN CORPUSCULAR HEMOGLOBIN 26 pg (27-31); MEAN CORPUSCULAR HGB CONC 31 % (32-36); MEAN CORPUSCULAR VOLUME 84 fL (79.0-98.0); MONOCYTES # (AUTO) 0.3 K/uL (0.0-1.0); MONOCYTES % (AUTO) 1.7 % (1.7-9.3); NEUTROPHILS # (AUTO) 18.6 K/uL (1.8-7.7); PLATELET COUNT (AUTO) 263 K/uL (130-430); RED CELL DISTRIBUTION WIDTH 31.4 % (9.0-15.0); WHITE BLOOD COUNT (AUTO) 19.3 K/uL (4.8-10.8)
[2023-11-10 07:12] LABS: CALCIUM 8.1 mg/dL (8.4-11.0); CREATININE 0.77 mg/dL (0.55-1.30); POTASSIUM 4.3 mmol/L (3.5-5.1)
[2023-11-10] MEDS ORDERED: MIDAZOLAM IN NACL,ISO-OSMOT/PF 100 ML IV PRN (07:15)
[2023-11-10] MEDS ORDERED: PHENYLEPHRINE HCL 100 MG in NS 240 ML IV PRN (07:15)
[2023-11-10 07:32] LABS: NEUTROPHILS % (AUTO) 96.2 % (40.0-70.0)
[2023-11-10] MEDS ORDERED: PROPOFOL DRIP 100 ML IV PRN (08:00)
[2023-11-10] MEDS: PROPOFOL DRIP 100 ML IV PRN (08:21)
[2023-11-10 09:21] LABS: BLOOD GAS HCO3 18.5 mmol/L (21.0-28.0); BLOOD GAS PCO2 36.8 mmHg (35.0-48.0); BLOOD GAS PH 7.319 (7.350-7.450)
[2023-11-10] MEDS: FUROSEMIDE 20 MG/2 ML VIAL IVP ONE (09:47)
[2023-11-10 09:57] LABS: ABG O2 SAT% ESTIMATE 76.7 % (94.0-98.0); BLOOD GAS BASE EXCESS -6.9 mmol/L (-2.0-3.0); BLOOD GAS PO2 44.2 mmHg (83.0-108.0)
[2023-11-10] MEDS: PHENYLEPHRINE HCL 10 MG/ML VIAL (NEOSYNEPHRINE) ONE (18:54)
[2023-11-10] MEDS ORDERED: NACL 0.9% 1,000 ML IV ONE ×2 (21:45→22:52)
[2023-11-10] MEDS: FUROSEMIDE 20 MG/2 ML VIAL IVP SCH (22:15)
[2023-11-10] MEDS: NOREPINEPHRINE 4 MG/4 ML VIAL IV ONE (22:19)
[2023-11-11] VITALS: BP_SYST 159; PULSE 145; RESP 37; TEMP 99.1; O2SAT 81
== END 2023-11-11 00:14 | DRG 853 ==
LOC: SED 20:23 → SIC 23:41 → STU 11-06 17:53 → SIC 11-09 21:37
PROVIDERS: ADMIT Student in an Organized Health Care Education/Training Program; ATTEND Student in an Organized Health Care Education/Training Program
PROC: 02HV33Z Insertion of Infusion Device into Superior Vena Cava, Percutaneous Approach (ICD-10-PCS; 2023-10-29)
PROC: B548ZZA Ultrasonography of Superior Vena Cava, Guidance (ICD-10-PCS; 2023-10-29)
PROC: 30233N1 Transfusion of Nonautologous Red Blood Cells into Peripheral Vein, Percutaneous Approach (ICD-10-PCS; 2023-10-30)
PROC: 30233K1 Transfusion of Nonautologous Frozen Plasma into Peripheral Vein, Percutaneous Approach (ICD-10-PCS; 2023-10-30)
PROC: 0DH60UZ Insertion of Feeding Device into Stomach, Open Approach (ICD-10-PCS; 2023-10-31)
PROC: 5A1945Z Respiratory Ventilation, 24-96 Consecutive Hours (ICD-10-PCS; 2023-10-31)
PROC: 0DTF0ZZ Resection of Right Large Intestine, Open Approach (ICD-10-PCS; principal; 2023-10-31 15:15)
PROC: 5A1945Z Respiratory Ventilation, 24-96 Consecutive Hours (ICD-10-PCS; 2023-11-09)
PROC: 0BH17EZ Insertion of Endotracheal Airway into Trachea, Via Natural or Artificial Opening (ICD-10-PCS; 2023-11-09)
DX: A41.9 Sepsis, unspecified organism (principal); G82.50 Quadriplegia, unspecified; K63.1 Perforation of intestine (nontraumatic); N17.0 Acute kidney failure with tubular necrosis; R65.21 Severe sepsis with septic shock; K35.32 Acute appendicitis with perforation, localized peritonitis, and gangrene, without abscess; J96.01 Acute respiratory failure with hypoxia; J69.0 Pneumonitis due to inhalation of food and vomit; E87.20 Acidosis, unspecified; E87.1 Hypo-osmolality and hyponatremia; N39.0 Urinary tract infection, site not specified; L97.421 Non-pressure chronic ulcer of left heel and midfoot limited to breakdown of skin; L97.329 Non-pressure chronic ulcer of left ankle with unspecified severity; D62 Acute posthemorrhagic anemia; E88.09 Other disorders of plasma-protein metabolism, not elsewhere classified; E78.5 Hyperlipidemia, unspecified; E11.65 Type 2 diabetes mellitus with hyperglycemia; E83.51 Hypocalcemia; E11.51 Type 2 diabetes mellitus with diabetic peripheral angiopathy without gangrene; E11.622 Type 2 diabetes mellitus with other skin ulcer; K56.41 Fecal impaction; K21.9 Gastro-esophageal reflux disease without esophagitis; E03.9 Hypothyroidism, unspecified; D75.839 Thrombocytosis, unspecified; N40.1 Benign prostatic hyperplasia with lower urinary tract symptoms; Z79.4 Long term (current) use of insulin; Z79.899 Other long term (current) drug therapy
CPT/HCPCS: 36415; 36600; 71045; 71260; 74018; 80048; 80053; 80076; 80185; 80202; 81000; 81001; 81015; 82009; 82378; 82550; 82803; 82948; 83037; 83605; 83690; 83735; 83880; 84100; 84439; 84443; 84478; 84480; 84484; 85007; 85025; 85027; 85610; 85651; 85730; 86886; 86900; 86901; 86920; 87040; 87070; 87081; 87086; 87186; 87205; 88307; 92610-GN; 92950; 93005; 94002; 94003; 94070; 94640; 94760; 99291; C9290; G0378; J0360; J0612; J0692; J1100; J1165; J1170; J1450; J1644; J1815; J1940; J2250; J2270; J2405; J2470; J2543; J2704; J2930; J3010; J3370; J3430; J3465; J3475; J3480; J3490; J7040; J7050; J7060; J7120; P9021; P9041; P9046; P9059